=== PATIENT | male | born 1990 | race Caucasian/White ===

== ENCOUNTER 2020-12-02 16:19 | Emergency (ER) | payer OTHER ==
[~2020-12-02] VITALS: Ht 177.8 cm; Wt 127.0 kg
[2020-12-02] MEDS ORDERED: HYDROCODON-ACE1 EAC7 PO (20:15)
[2020-12-02 21:45] VITALS: BP 132/76
== END 2020-12-02 21:45 | disposition home or self-care (01) ==
LOC: M.ERS 16:19
DX: S82.452A Displaced comminuted fracture of shaft of left fibula, initial encounter for closed fracture (principal); S93.05XA Dislocation of left ankle joint, initial encounter; Z90.49 Acquired absence of other specified parts of digestive tract; W10.8XXA Fall (on) (from) other stairs and steps, initial encounter; Y93.89 Activity, other specified; Y92.89 Other specified places as the place of occurrence of the external cause; Y99.8 Other external cause status